=== PATIENT | female | born 1940 | race Caucasian/White ===

== ENCOUNTER 2016-06-29 10:25 | Outpatient (CLI) | payer OTHER ==
--- NOTE | 2016-06-29 12:01 | DIAGNOSTIC IMAGING REPORT ---
PROCEDURE: XR BARIUM SWALLOW INDICATION: Cough. Heartburn. Recent left upper lobe pneumonia. TECHNIQUE: Double contrast study. Fluoroscopy time, three point a minutes; 1515.16 mGy. 75 fluoroscopic images (including cine fluoroscopy of the esophagus). COMPARISON: None. 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 The rest of the pharyngoesophagus is normal. No evidence of aspiration on this study. Patulous gastroesophageal junction with moderate to marked spontaneous gastroesophageal reflux. Associated mild tertiary contractions. The rest of the esophagus is normal. No constricting or polypoid lesions. IMPRESSION: 1. 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 2. Patulous gastroesophageal junction with moderate to marked spontaneous gastroesophageal reflux. Associated mild tertiary contractions of the esophagus. 3. Findings discussed with the patient and called to Dr. Elia Lugo.
== END 2016-06-29 23:00 ==
LOC: XR SRH 10:25
DX: K21.9 Gastro-esophageal reflux disease without esophagitis (principal); K22.2 Esophageal obstruction; R05 Cough

== ENCOUNTER 2016-12-14 12:34 | Outpatient (CLI) | payer OTHER | END 2016-12-14 23:00 | LOC: RT SRH 12:34 | DX: R05 Cough (principal) ==